=== PATIENT | female | born 1995 | race Asian ===

== ENCOUNTER 2017-12-29 19:39 | Outpatient (CLI) | payer OTHER ==
[~2017-12-29] VITALS: Ht 149.9 cm; Wt 62.0 kg
[2017-12-29] MEDS ORDERED: PRENATAL MVI (20:18)
[2017-12-29 21:20] VITALS: BP 113/66; PULSE 90; TEMP 97.9
== END 2017-12-29 21:30 | disposition home or self-care (01) ==
LOC: LDRO 19:39
DX: O62.9 Abnormality of forces of labor, unspecified (principal); Z3A.40 40 weeks gestation of pregnancy

== ENCOUNTER 2017-12-30 02:05 | Inpatient (IN) | payer OTHER ==
[2017-12-30] VITALS (13 sets, daily range): BP systolic 89–119; BP diastolic 48–73; PULSE 71–92; TEMP 97.6–98.4
[~2017-12-30] VITALS: Wt 62.0 kg
[~2017-12-30 02:05] MED LIST: PRENATAL MVI
[2017-12-30 04:30] LABS: BASO % 0.3 % (0.0-2.0); EOS % 0.1 % (0-4.0); GRAN # 9.1 (1.4-6.5); GRAN % 84.9 % (42.2-75.2); HEMATOCRIT 38.4 % (37.0-47.0); HEMOGLOBIN 13.2 g/dl (12.5-16.0); LYMPH % 9.4 % (20.0-51.0); MEAN CELL VOLUME 88 fl (80.0-100.0); MEAN CORPUSCULAR HEMOGLOBIN 30 pg (27.0-31.0); MEAN CORPUSCULAR HGB CONC 34 g/dl (33.0-37.0); MEAN PLATELET VOLUME 10.2 fl (7.4-10.4); MONO # 0.5 (0.1-0.6); MONO % 4.9 % (1.7-9.3); PLATELET COUNT 213 K/mm3 (130-400); RED BLOOD COUNT 4.36 M/mm3 (4.10-5.30); REDCELL DISTRIBUTION WIDTH-CV 12.6 % (11.5-14.5)
[2017-12-31 03:00] VITALS: BP 83/42; PULSE 68
[2017-12-31 07:12] VITALS: BP 94/52; PULSE 62
[2017-12-31] MEDS ORDERED: PERCOCET 325 MG1 TA2 PO (09:43)
[2017-12-31] MEDS ORDERED: IBU800 M1 PO (09:43)
[2017-12-31 17:09] VITALS: BP 98/71; PULSE 77
[2017-12-31 20:45] VITALS: BP 89/45; PULSE 85; TEMP 98.1
[2018-01-01 08:40] VITALS: BP 99/49; PULSE 65; TEMP 98.3
[2018-01-01] MEDS ORDERED: TUCKS50% TP (13:00)
== END 2018-01-01 15:55 | disposition home or self-care (01) | DRG 775 ==
LOC: LDRO 02:05 → OB 02:15 → LDR 02:15 → OB 05:00
PROVIDERS: Student in an Organized Health Care Education/Training Program
PROC: 10E0XZZ Delivery of Products of Conception, External Approach (ICD-10-PCS; principal; 2017-12-30)
PROC: 0KQM0ZZ Repair Perineum Muscle, Open Approach (ICD-10-PCS; 2017-12-30)
PROC: 0UQMXZZ Repair Vulva, External Approach (ICD-10-PCS; 2017-12-30)
DX: O62.3 Precipitate labor (principal); O48.0 Post-term pregnancy; O70.1 Second degree perineal laceration during delivery; Z3A.40 40 weeks gestation of pregnancy; O71.82 Other specified trauma to perineum and vulva; Z37.0 Single live birth
CPT/HCPCS: J2590; J7120